=== PATIENT | female | born 1970 | race Hispanic/Latino ===

== ENCOUNTER 2017-11-11 21:02 | Emergency (ER) | payer BC, SELFPAY ==
[2017-11-11] MEDS ORDERED: CYCLOBENZAPRINE 10 MG TAB ONE (21:43)
[2017-11-11] MEDS ORDERED: HYDROCODONE/APAP 7.5/325 MG TAB ONE (21:43)
[2017-11-11 21:45] LABS: Urine Blood TRACE (NEG); Urine Glucose NEGATIVE (NEG); Urine Protein NEGATIVE (NEG); Urine Specific Gravity >1.030 (1.005-1.030); Urine pH 5.5 (5.0-7.0)
[2017-11-11 21:45] LABS: Urine Bacteria 20-50 /HPF (<20); Urine Culture Reflex Order REFLEXED; Urine RBC <5 /HPF (NONE SEEN)
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
== END 2017-11-11 23:05 | disposition home or self-care (01) ==
LOC: ER 21:02
DX: M54.16 Radiculopathy, lumbar region (principal); V49.49XA Driver injured in collision with other motor vehicles in traffic accident, initial encounter
CPT/HCPCS: 72131; 81003; 81015; 81025; 87077; 87086; 87088; 87186; 99284